=== PATIENT | female | born 1995 | race Caucasian/White ===

== ENCOUNTER 2017-01-11 14:06 | Emergency (ER) | payer BC ==
[~2017-01-11] VITALS: Ht 165.1 cm; Wt 65.0 kg
[2017-01-11 14:07] VITALS: BP 126/67; PULSE 120; RESP 16; TEMP 102; O2SAT 95
[2017-01-11] MEDS ORDERED: IBUPROFEN 800 MG TAB PO ONE (14:30)
[2017-01-11] MEDS ORDERED: DEXAMETHASONE SOD PHOS 4 MG/ML VIAL IM ONE (14:30)
--- NOTE | 2017-01-11 14:42 | PD ---
HPI Chief Complaint: Cold / Flu Symptoms Time Seen by Provider: 14:33 Travel History International Travel<30 days: No Contact w/Intl Traveler<30days: No Traveled to known affect area: No History of Present Illness HPI 21-year-old female presents to the emergency Department with complaint of sore throat for one week without improvement. She was seen at a medical clinic week ago and reports her rapid strep came back negative. They also sent a throat culture that came back negative also. She was put on azithromycin which she took for 7 days with no improvement of symptoms. Symptoms have actually worsened. She denies cough. Reports onset of fever with MAXIMUM TEMPERATURE 102.0. Reports anterior cervical lymphadenopathy and tenderness. Denies lump throat, difficulty swallowing, unusual drooling. Reports painful swallowing. Denies ear pain, nasal congestion. Denies chest pain, shortness of breath, abdominal pain, nausea, vomiting. Denies headache. Reports history of mono. No one else with similar symptoms. No known allergies. Denies significant past medical history. No other modifying factors or associated signs and symptoms. PFSH Social History Tobacco Use: No Allergies-Medications (Allergen,Severity, Reaction): Coded Allergies: No Known Allergies (Unverified , 01/11/17) Reported Meds & Prescriptions Reported Meds & Active Scripts Active No Active Prescriptions or Reported Medications Review of Systems Except as stated in HPI: all other systems reviewed are Neg Physical Exam Narrative GENERAL: Well-nourished, well-developed female patient, in no acute distress; febrile 102.0, nontoxic appearing SKIN: Warm and dry. No rash. HEAD: Atraumatic. Normocephalic. EYES: Pupils equal and round at 3 mm with brisk reaction. No scleral icterus. No injection or drainage. PERRLA. ENT: Mucosa pink and dry. Pharynx with 3+ tonsils; with erythema, exudate, and edema. No Uvular edema. No uvular, palatal, or tonsillar deviation. Airway patent. Voice is hoarse. EARS: Bilateral pinnae and external canals appear within normal limits. Bilateral tympanic membranes without erythema, dullness or perforation.. NECK: Trachea midline. Anterior cervical lymphadenopathy and tenderness. CARDIOVASCULAR: Regular rate and rhythm. No murmur appreciated. RESPIRATORY: No accessory muscle use. Clear to auscultation. Breath sounds equal bilaterally. GASTROINTESTINAL: Abdomen soft, non-tender, nondistended. Hepatic and splenic margins not palpable. Bowel sounds are active 4 quadrants. MUSCULOSKELETAL: No obvious deformities. No clubbing. No cyanosis. No edema. NEUROLOGICAL: Awake and alert. Oriented 3. No obvious cranial nerve deficits. Motor grossly within normal limits. Normal speech. Moves all extremities. PSYCHIATRIC: Appropriate mood and affect; insight and judgment normal. Data Data Last Documented VS Vital Signs Date Time Temp Pulse Resp B/P Pulse Ox O2 Delivery O2 Flow Rate FiO2 01/11/17 14:07 102.0 120 16 126/67 95 Room Air Orders Monoscreen (01/11/17 14:27) Group A Rapid Strep Screen (01/11/17 14:27) Ibuprofen (Motrin) (01/11/17 14:30) Dexamethasone Inj (Decadron Inj) (01/11/17 14:30) Strep Culture (Group A) (01/11/17 14:45) Labs Laboratory Tests Test 01/11/17 14:45 Monoscreen NEG MDM Medical Decision Making Medical Screen Exam Complete: Yes Emergency Medical Condition: Yes Medical Record Reviewed: Yes Differential Diagnosis Strep pharyngitis, mono, less likely peritonsillar abscess Narrative Course 21-year-old female with exudative pharyngitis. She was seen one week ago in an urgent care and strep and culture were negative. She was put on a azithromycin which she has completed a full course of 7 days and with worsening of symptoms. Patient is afebrile in ER with a temperature of 102.0 and her MAXIMUM TEMPERATURE. Nontoxic-appearing. Rapid strep and mono screen ordered. Decadron IM ordered. Ibuprofen ordered. 1536: Rapid strep negative. 1610: Monoscreen negative. Samuel bar virus labs ordered. Patient states she may recall that she has tested positive for Samuel-Parker virus in the past, but cannot remember. I will prescribe amoxicillin for home. Patient instructed to stop amoxicillin if she develops a rash. She verbalizes understanding and agreement with treatment plan. Deltasone, Magic mouthwash, ibuprofen prescribed for home. Patient is medically cleared and stable for discharge. Discussed reasons to return to the emergency department. Instructed patient to follow up with primary care provider. Patient agrees with treatment plan. The patients vital signs are stable and the patient is stable for outpatient follow-up and treatment. Patient discharged home, stable and in no acute distress. Diagnosis Primary Impression: Exudative pharyngitis Referrals: Primary Care Physician Patient Instructions: General Instructions, Mononucleosis (ED), Pharyngitis (ED ) Departure Forms: Tests/Procedures, Work Release Enter return to work date: Jan 15, 2017 Additional Instructions: Take Antibiotics as prescribed and complete full course of antibiotics Get plenty of sleep/rest Rest your voice Drink plenty of fluids to prevent dehydration Use warm saltwater gargles to soothe throat pain Use an air humidifier/turn off ceiling fans Use throat lozenges as needed for sore throat Use ibuprofen or acetaminophen as needed to relieve pain and fever Follow-up with your primary care provider within 2-4 days Return immediately to the emergency department with worsening of symptoms Med/Other Pt SpecificInfo: Prescription(s) given Scripts Ibuprofen 800 Mg Vbw139 Mg PO Q6HR PRN (PAIN) #30 TAB Ref 0 Prov:Vania Lind 01/11/17 [id number]-Ummdimvjm Liq (Magic Mouthwash Adult Liq)120 Ml Susp5 Ml SWISH-SPIT Q3HR PRN (SORE THROAT) #120 ML Ref 0 Each 5mL contains: Nystatin 200,000units, Diphenhydramine 4.25mg, Viscous Lidocaine 10mg, Le syrup 0.8 mL Prov:Vania Lind 01/11/17 Prednisone (Deltasone)20 Mg Tab40 Mg PO DAILY 5 Days Ref 0 Prov:Vania Lind 01/11/17 Amoxicillin 500 Mg Osf511 Mg PO BID 10 Days Ref 0 Prov:Vania Lind 01/11/17 Disposition: 01 DISCHARGE HOME Condition: Stable Vania Lind Jan 11, 2017 14:42
[2017-01-11] MEDS ORDERED: PRED-503 PO (16:07)
[2017-01-11] MEDS ORDERED: IBUP800T23 PO (16:07)
[2017-01-11] MEDS ORDERED: AMOX500C PO (16:07)
[2017-01-11] MEDS ORDERED: MAGICADU2 SWISH-SPIT (16:07)
[2017-01-11 17:07] VITALS: TEMP 98.9
[2017-01-13 01:08] LABS: EBV VCA IgM Negative (Negative)
== END 2017-01-11 17:33 | disposition home or self-care (01) ==
LOC: NEPB 14:06
DX: J02.9 Acute pharyngitis, unspecified (principal); R50.9 Fever, unspecified; R59.0 Localized enlarged lymph nodes
CPT/HCPCS: 86308; 86664; 86665; 87081; 87880; 96372; 99283; J1100